=== PATIENT | female | born 1970 | race Caucasian/White ===

== ENCOUNTER 2017-03-20 05:58 | Observation (INO) | payer BC ==
--- NOTE | 2017-03-19 18:07 | MH ---
cc: PAT ROSAS M.D. DATE OF ADMISSION 03/20/2017 HISTORY OF THE PRESENT ILLNESS The patient is a 46-year-old white female, G5, P3 0-2-3 who over the last year has had occasion of heavy long periods. She had a prior history of this and underwent an endometrial ablation, however, she continued to have her menses quite normal until this past year where they have become abnormal again. She would like definitive treatment with a hysterectomy. Workup for her involved an endometrial biopsy which revealed benign tissue in the endometrium and the endocervix. Pap smear was negative. Her exam was pretty uneventful. We talked about different ways to treat this problemm, different types of hysterectomies she is most interested in a LASH with removal of bilateral tubes. She is aware that with laparoscopic surgery sometimes we do need to convert in to an open case to finish them and she understands that. PAST MEDICAL HISTORY The past medical history on the patient is negative. PAST SURGICAL HISTORY 1. An endometrial ablation. 2. Tubal ligation. 3. Dilatation and curettage. 4. Cholecystectomy. 5. And times two. MEDICATIONS Currently are iron. ALLERGIES NONE. SOCIAL HISTORY No tobacco. Occasional alcohol. No drug use. She is and a retail loan originator assistant. FAMILY HISTORY Hypertension, asthma, Parkinson's, diabetes, coronary artery disease, cerebrovascular accident, sarcoidosis. GYNECOLOGIC HISTORY No history of abnormal Pap smear. No history of STDs. OBSTETRICAL HISTORY x1. x two. Miscarriage x2. PHYSICAL EXAMINATION VITAL SIGNS: On physical exam her weight is 175, height 5 feet 6 inches, blood pressure is 122/76. Pulse is 70. BREASTS: Without masses or ____ discharge. CHEST: Clear to auscultation bilaterally. CARDIOVASCULAR: Regular rate and rhythm without murmur, rub or gallop. ABDOMEN: Soft, nontender, nondistended with no hepatosplenomegaly. No CVA tenderness. No hernias noted. PELVIC: Exam normal external female genitalia without lesions. Vaginal vault without lesions. Cervix without lesions. Uterus palpates normal size. It is mobile. It is nontender. No adnexal masses. ASSESSMENT/PLAN On the patient include: Recurrent menorrhagia despite surgical treatment with an ablation. The plan will be for a laparoscopic assisted supracervical hysterectomy with bilateral salpingectomies. MD LARRY Hoffman/DEXTER /5:27 PM 5:38 PM
[~2017-03-20] VITALS: Ht 167.6 cm; Wt 78.8 kg
[2017-03-20] MEDS ORDERED: SUGAMMADEX SODIUM 200 MG/2 ML VIAL IV PUSH ONE (06:41)
[2017-03-20] MEDS ORDERED: FAMOTIDINE 20 MG/2 ML VIAL ONE (06:41)
[2017-03-20] MEDS ORDERED: ACETAMINOPHEN 1000 MG/100 ML 100 ML IV ONE (06:42)
[2017-03-20] MEDS ORDERED: CHLORHEXIDINE GLUCONATE 2 % 1 PACK (2 CLOTHS) TOPICAL PRN (06:45)
[2017-03-20] MEDS ORDERED: METOPROLOL TARTRATE 25 MG TAB PO PRN (06:45)
[2017-03-20] MEDS ORDERED: POVIDONE IODINE 5% (ANTISEPSIS KIT) 4 APPLICATIONS EACH NARE PRN (06:45)
[2017-03-20] MEDS ORDERED: SODIUM CHLORID 0.9% 500 ML IV PRN (06:45)
[2017-03-20] MEDS ORDERED: ceFAZolin 2 GM PREMIX 50 ML IV SCH (06:45)
[2017-03-20] MEDS ORDERED: LACTATED RINGER'S 1000 ML IV PRN (06:45)
[2017-03-20] MEDS ORDERED: BUPIVACAINE/EPINEPHRINE 0.5% 50 ML VIAL ONE (06:51)
[2017-03-20] MEDS ORDERED: BUPIVACAINE/EPINEPHRINE 0.25% 50 ML VIAL ONE (06:51)
[2017-03-20 07:21] LABS: AUTOMATED NEUTROPHIL # 3.7 TH/MM3 (1.8-7.7); BASOPHIL % 0.8 % (0.0-2.0); EOSINOPHIL # 0.1 TH/MM3 (0-0.4); EOSINOPHIL % 1.5 % (0.0-4.0); HEMATOCRIT 36.7 % (35.0-46.0); HEMOGLOBIN 12.1 GM/DL (11.6-15.3); LYMPH % 19.7 % (9.0-44.0); LYMPHOCYTE # 1.1 TH/MM3 (1.0-4.8); MEAN CELL VOLUME 85.7 FL (80.0-100.0); MEAN CORPUSCULAR HEMOGLOBIN 28.3 PG (27.0-34.0); MEAN CORPUSCULAR HGB CONC 33.1 % (32.0-36.0); MEAN PLATELET VOLUME 7.7 FL (7.0-11.0); MONO % 8.5 % (0.0-8.0); MONOCYTE # 0.5 TH/MM3 (0-0.9); NEUT % 69.5 % (16.0-70.0); PLATELET COUNT 195 TH/MM3 (150-450); RED BLOOD COUNT 4.28 MIL/MM3 (4.00-5.30); RED CELL DISTRIBUTION WIDTH 14.3 % (11.6-17.2); WHITE BLOOD COUNT 5.4 TH/MM3 (4.0-11.0)
[2017-03-20] MEDS: LACTATED RINGER'S 1000 ML INJ 1,000 ML IV SCH ×3 (09:22→21:35)
[2017-03-20] MEDS ORDERED: KETOROLAC TROMETHAMINE 30 MG/ML (IVP) VIAL IVP PRN (09:30)
[2017-03-20] MEDS ORDERED: ONDANSETRON HCL 4 MG/2 ML VIAL IVP PRN (09:30)
[2017-03-20] MEDS ORDERED: oxyCODONE/ACETAMINOPHEN 5 MG/325 MG TAB PO PRN ×2 (09:30)
[2017-03-20] MEDS ORDERED: SODIUM CHLORIDE 0.9% FLUSH 10 ML FLUSH IV FLUSH PRN (09:30)
[2017-03-20] MEDS ORDERED: MIDAZOLAM HCL 2 MG/2 ML VIAL ONE (09:44)
[2017-03-20] MEDS ORDERED: DO NOT ADM ANY ANTICOAGULANT DRUGS PRN (10:00)
[2017-03-20 11:00] VITALS: BP 95/72; PULSE 61; RESP 16; TEMP 97.6
[2017-03-20] MEDS ORDERED: ROCURONIUM INJ 50 MG/5 ML SYRINGE IV PUSH ONE (12:00)
[2017-03-20] MEDS ORDERED: ONDANSETRON HCL 4 MG/2 ML VIAL IV PUSH ONE (12:00)
[2017-03-20] MEDS ORDERED: KETOROLAC TROMETHAMINE 30 MG/ML (IVP) VIAL IV PUSH ONE (12:00)
[2017-03-20] MEDS ORDERED: SODIUM CHLORIDE 0.9% 20 ML VIAL IV ONE (12:00)
[2017-03-20] MEDS ORDERED: LACTATED RINGER'S 1000 ML INJ 1,000 ML IV ONE (12:00)
[2017-03-20] MEDS ORDERED: NEOSTIGMINE 5 MG/5 ML SYRINGE IV PUSH ONE (12:00)
[2017-03-20] MEDS ORDERED: GLYCOPYRROLATE 1 MG/5 ML SYRINGE IV PUSH ONE (12:00)
[2017-03-20] MEDS ORDERED: DEXAMETHASONE SOD PHOS 4 MG/ML VIAL IV ONE (12:00)
[2017-03-20] MEDS ORDERED: PROPOFOL 200 MG/20 ML AMP IV ONE (12:00)
[2017-03-20] MEDS ORDERED: LIDOCAINE HCL 1% PF 5 ML SYRINGE OTHER ONE (12:00)
[2017-03-20 16:42] VITALS: BP 119/73; PULSE 66; RESP 16; TEMP 98.8; O2SAT 99
[2017-03-20 20:08] VITALS: BP 122/66; PULSE 73; RESP 20; TEMP 98.2
[2017-03-20] MEDS ORDERED: SODIUM CHLORIDE 0.9% FLUSH 10 ML FLUSH IV FLUSH SCH (21:00)
[2017-03-21 00:53] VITALS: BP 86/52; PULSE 76; RESP 18; TEMP 98.2
[2017-03-21 04:10] VITALS: BP 101/67; PULSE 74; RESP 20; TEMP 98.5
--- NOTE | 2017-03-21 07:00 | MP ---
cc: PAT ROSAS M.D. DATE OF SURGERY 03/20/2017 PREOPERATIVE DIAGNOSIS Dysfunctional uterine bleeding with menorrhagia refractory to surgical and medical management. POSTOPERATIVE DIAGNOSIS Dysfunctional uterine bleeding with menorrhagia refractory to surgical and medical management. PROCEDURE PERFORMED Laparoscopic assisted supracervical hysterectomy with right salpingectomy. OPERATING SURGEON Pat Rudolph MD ANESTHESIA General endotracheal FINDINGS IN SURGERY Included a normal sized uterus with an absent left tube. Normal-appearing right tube status post tubal ligation. Normal-appearing ovaries bilaterally. The cul-de-sac free of any adhesions. A slightly adhered bladder to the anterior uterine wall. BLOOD LOSS Minimal less than 50 cc. COMPLICATIONS None PROCEDURE IN DETAIL After proper consents were obtained, the patient was taken to the operating room where general endotracheal anesthesia was applied. She was then placed in dorsal position, sterilely prepped and draped and a Eaton catheter was placed. At this time, lidocaine with epinephrine solution was placed in the umbilicus. A 5-mm incision was made in the umbilicus and a 5-mm trocar was placed under direct visualization into the abdominopelvic cavity without difficulty. We insufflated to an adequate level of pneumoperitoneum. We then placed a 1-cm incision in the left lower quadrant midaxillary line and placed a 10/12 trocar without difficulty. We placed another 5 mL incision in the right lower quadrant midaxillary line without difficulty and placed a 5-mm trocar. At this time, we were able to inspect the pelvis. The uterus was mobile, lifted up out of the cul-de-sac nicely. The left tube was a pretty much absent. The right tube was present and showed signs of a prior tubal ligation. Each ovary identified as normal. There was adherence of the bladder to the anterior uterine wall. At this time, we came across the utero-ovarian ligament on the left side using the Enseal device. We came through the broad ligament and across the round ligament without difficulty. I then was able to develop a bladder flap and it actually came down very nicely with just a thin adhesion and we took that all the way across the other side developing a nice bladder flap. I then came across the uterine arteries on the left side using the Enseal device without difficulty. I then went to the right side and took the tube off of the broad ligament and set it in the cul-de-sac for future retrieval. I then went ahead and came across the utero-ovarian ligament on the right side, through the broad ligament across the round ligaments, finished developing the bladder flap and then came across the uterine arteries on the right side without difficulty. At this time, I switched out to the harmonic scalpel and started amputating the uterus from the cervical stump without difficulty. Once that was completed, we went ahead and placed the morcellator in the 10/12 trocar site without difficulty. We morcellated out the uterus very easily with no remaining remnants as noted. We then went ahead and assured that there was hemostasis everywhere. We overlaid the cervical stump with Interceed. We then used the Andrei-Maia device to close the 10/12 trocar site using 0 Vicryl suture with excellent closure noted. We then closed our skin incision using 4-0 Monocryl in a subcu fashion. Counts were correct. Hemostasis assured and the patient was stable to the recovery room. MD LARRY Hoffman/ERIN /2:31 PM /6:38 AM
[2017-03-21] MEDS ORDERED: OXYC1TAB63 PO (07:59)
--- NOTE | 2017-03-21 08:00 | HHI.DCPOC ---
Discharge Care Plan Report Symptoms to Your Doctor -Temperature above 100.5 degrees -Redness, of incision or excessive or foul smelling drainage -Unusual pain or calf pain -Increased vaginal bleeding -Painful or difficulty urinating -Feelings of extreme sadness or anxiety after 2 weeks Goals to Promote Your Health * To prevent worsening of your condition and complications * To maintain your health at the optimal level Directions to Meet Your Goals Take your medications as prescribed Follow your dietary instruction Follow activity as directed Ensure plenty of rest for recovery Drink fluids for hydration Keep your appointments as scheduled Take your immunizations and boosters as scheduled If your symptoms worsen call your PCP, if no PCP go to Urgent Care Center or Emergency Room Smoking is Dangerous to Your Health. Avoid second hand smoke Call the 24-hour crisis hotline for domestic abuse at Kristine Johns MD Mar 21, 2017 08:00
[2017-03-21 09:08] VITALS: BP 116/79; PULSE 70; RESP 16; TEMP 98.5
== END 2017-03-21 10:15 | disposition home or self-care (01) ==
LOC: HSDC 05:58 → HSDI 09:26 → H1EA 10:32
PROVIDERS: ADMIT Obstetrics & Gynecology; ATTEND Obstetrics & Gynecology
DX: N92.0 Excessive and frequent menstruation with regular cycle (principal); N93.8 Other specified abnormal uterine and vaginal bleeding
CPT/HCPCS: 00840; 58542; 84703; 85025; 88307; 94150; 96374; C1765; G0378; J0131; J0690; J1100; J1885; J2250; J2405; J2710; J3010; J7120